=== PATIENT | male | born 1995 | race Caucasian/White ===

== ENCOUNTER 2018-06-09 09:34 | Emergency (ER) | payer OTHER ==
--- NOTE | 2018-06-09 11:10 | ED Physician Chart ---
ED Chief Complaint/HPI - Patient Information Date Seen:: 06/09/18 Time Seen:: 09:57 Chief Complaint:: LUE dog bites History of Present Illness:: LUE dog bites. unprovoked attack by a pit bull. Allergies:: Allergies Allergy/AdvReac Type Severity Reaction Status Date / Time No Known Allergies Allergy Verified 06/09/18 09:54 Vitals:: Vital Signs - 8 hr 06/09/18 09:57 Temp 98.8 F HR 81 RR 18 BP 145/88 O2 Sat % 98 Historian:: Patient Review:: Nurse's Note Reviewed ED Review of Systems - Review of Systems General/Constitutional: No fever, No chills, No weight loss, No weakness, No diaphoresis, No edema, No loss of appetite Skin: Other (dog biteS (unprovoked attack) by a pit bull) Head: No headache, No light-headedness Eyes: No loss of vision, No pain, No diplopia ENT: No earache, No nasal drainage, No sore throat, No tinnitus Neck: No neck pain, No swelling, No thyromegaly, No stiffness, No mass noted Cardio Vascular: No chest pain, No palpitations, No PND, No orthopnea, No edema Pulmonary: No SOB, No cough, No sputum, No wheezing GI: No nausea, No vomiting, No diarrhea, No pain, No melena, No hematochezia, No constipation, No hematemesis G/U: No dysuria, No frequency, No hematuria Musculoskeletal: No bone or joint pain, No back pain, No muscle pain Endocrine: No polyuria, No polydipsia Psychiatric: No prior psych history, No depression, No anxiety, No suicidal ideation Hematopoietic: No bruising, No lymphadenopathy Allergic/Immuno: No urticaria, No angioedema Neurological: No syncope, No focal symptoms, No weakness, No paresthesia, No headache, No seizure, No dizziness, No confusion, No vertigo ED Past Medical History - Past Medical History Obtainable: Yes Past Medical History: No significant medical hx Family Medical History - Family Member Mother Living Status: Still Living ED Physical Exam - Physical Examination General/Constitutional: Awake, Well-developed, well-nourished, Alert, No distress, GCS 15, Non-toxic appearing, Ambulatory Head: Atraumatic Other Skin comments:: see extremities for full description. Respiratory: Nl effort/Exclusion Extremities: No tenderness or effusion, Full ROM, normal strength in all extremities, No edema, Normal digits & nails Other Extremities comments:: small 0.5 cm puncture wound present on the volar aspect of the left hand in the mid to distal crease area with elevated area of epidermis. 0.5 cm scratch like appearing area on the distal forearm (dorsally). NV intact. Full flexion and extension all digits and wrist. No cellulitis. Full function, motor and sensation present. Neuro/Psych: Alert/oriented, Normal sensory exam, Normal motor strength, Judgement/insight normal, Mood normal, Normal gait, No focal deficits Misc: Normal back, No paraspinal tenderness ED Assessment - Assessment General Assessment: resting comfortably. ED Septic Shock - . Is Septic Shock (SBP<90, OR Lactate>4 mmol\L) present?: No - <6hrs of presentation: Vital Signs: Vital Signs - 8 hr 06/09/18 09:57 Temp 98.8 F HR 81 RR 18 BP 145/88 O2 Sat % 98 ED Reassessment (Disposition) - Reassessment Reassessment Condition:: Improved - Diagnosis Diagnosis:: LUE dog bites - Aftercare/Follow up Instructions Aftercare/Follow-Up Instructions:: Refer to Discharge Instructions Notes:: please clean wounds 2 times a day with betadine (and do not apply antibiotic ointment). please follow up with primary care physician for follow up exams. Medication Prescribed:: betadine, augmentin, norco - Patient Disposition Discharge/Transfer:: Home Condition at Disposition:: Stable, Improved
== END 2018-06-09 12:03 | disposition home or self-care (01) ==
LOC: ER 09:34
DX: S61.452A Open bite of left hand, initial encounter (principal); S61.432A Puncture wound without foreign body of left hand, initial encounter; W54.0XXA Bitten by dog, initial encounter; Y93.89 Activity, other specified; Y92.89 Other specified places as the place of occurrence of the external cause; Y99.8 Other external cause status
CPT/HCPCS: 99284; 96372 ×2; 90715; J1885; J0696; Z7502

== ENCOUNTER 2018-11-21 13:19 | Emergency (ER) | payer MEDICAID, OTHER ==
[2018-11-21] MEDS ORDERED: Dacriose Ophth Soln 120 mL Bottle EACH EYE ONE (13:50)
[2018-11-21] MEDS ORDERED: Fluorescein Sodium 1 mg Ophth Strip LEFT EYE ONE (13:50)
[2018-11-21] MEDS ORDERED: Tetracaine 0.5% Ophth Soln 15 mL Soln LEFT EYE ONE (13:50)
[2018-11-21] MEDS ORDERED: Dacriose Ophth Soln 120 mL Bottle ONE (13:54)
[2018-11-21] MEDS ORDERED: Fluorescein Sodium 1 mg Ophth Strip ONE (13:54)
[2018-11-21] MEDS ORDERED: TETRACAINE HCL 0.5% OPHTH SOLN 4ML BOTTLE ONE (13:55)
--- NOTE | 2018-11-21 15:25 | ED Physician Chart ---
ED Chief Complaint/HPI - Patient Information Date Seen:: 11/21/18 Time Seen:: 13:44 Chief Complaint:: L eye red, ST & congestion History of Present Illness:: PATIENT PRESENTS TO THE ER WITH HX OF REDDENED SCLERA TO LEFT EYE FOR TWO DAYS WITH SORE THROAT/CONGESTION; NO TRAUMA, NO OTHER REMARKABLE S/S; VISUAL ACUITY 20/20 OD, 20/20 OS yellow discharge from left eye Allergies:: Allergies Allergy/AdvReac Type Severity Reaction Status Date / Time No Known Allergies Allergy Verified 06/09/18 09:54 Vitals:: Vital Signs - 8 hr 11/21/18 11/21/18 13:44 15:00 Temp 98.8 F 98.8 F HR 74 74 RR 16 16 BP 151/89 157/89 O2 Sat % 100 100 Historian:: Patient Review:: Nurse's Note Reviewed ED Review of Systems - Review of Systems General/Constitutional: No fever, No chills, No weight loss, No weakness, No diaphoresis, No edema, No loss of appetite Skin: No skin lesions, No rash, No bruising Head: No headache, No light-headedness Eyes: No loss of vision, No diplopia, Other (L eye red) ENT: No earache, No nasal drainage, Sore throat, No tinnitus Neck: No neck pain, No swelling, No thyromegaly, No stiffness, No mass noted Cardio Vascular: No chest pain, No palpitations, No PND, No orthopnea, No edema Pulmonary: No SOB, No cough, No sputum, No wheezing GI: No nausea, No vomiting, No diarrhea, No pain, No melena, No hematochezia, No constipation, No hematemesis G/U: No dysuria, No frequency, No hematuria Musculoskeletal: No bone or joint pain, No back pain, No muscle pain Endocrine: No polyuria, No polydipsia Psychiatric: No prior psych history, No depression, No anxiety, No suicidal ideation Hematopoietic: No bruising, No lymphadenopathy Allergic/Immuno: No urticaria, No angioedema Neurological: No syncope, No focal symptoms, No weakness, No paresthesia, No headache, No seizure, No dizziness, No confusion, No vertigo ED Past Medical History - Past Medical History Obtainable: Yes Past Medical History: No significant medical hx Family Medical History - Family Member Mother History Unknown: Yes Living Status: Still Living ED Physical Exam - Physical Examination General/Constitutional: Awake, Well-developed, well-nourished, Alert, No distress, GCS 15, Non-toxic appearing, Ambulatory Head: Atraumatic Eyes: PERRL, EOMI Other Eyes comments:: left sclera injected. conjunctiva on left slightly injected. fluorescin exam negative on left. no foreign bodies present. Skin: Nl inspection, No rash, No skin lesions, No ecchymosis, Well hydrated, No lymphadenopathy ENMT: External ears, nose nl, Nasal exam nl, Lips, teeth, gums nl Neck: Nontender, Full ROM w/o pain, No JVD, No nuchal rigidity, No bruit, No mass, No stridor Respiratory: Nl effort/Exclusion, Clear to Auscultation, No Wheeze/Rhonchi/Rales Cardio Vascular: RRR, No murmur, gallop, rubs, NL S1 S2 GI: No tenderness/rebounding/guarding, No organomegaly, No hernia, Normal BS's, Nondistended, No mass/bruits, No McBurney tenderness : No CVA tenderness Extremities: No tenderness or effusion, Full ROM, normal strength in all extremities, No edema, Normal digits & nails Neuro/Psych: Alert/oriented, DTR's symmetric, Normal sensory exam, Normal motor strength, Judgement/insight normal, Mood normal, Normal gait, No focal deficits Misc: Normal back, No paraspinal tenderness ED Septic Shock - . Is Septic Shock (SBP<90, OR Lactate>4 mmol\L) present?: No - <6hrs of presentation: Vital Signs: Vital Signs - 8 hr 11/21/18 11/21/18 13:44 15:00 Temp 98.8 F 98.8 F HR 74 74 RR 16 16 BP 151/89 157/89 O2 Sat % 100 100 ED Reassessment (Disposition) - Reassessment Reassessment Condition:: Improved - Diagnosis Diagnosis:: Left eye bacterial conjunctivitis Non-strep pharyngitis Hypertension Cannabis use - Aftercare/Follow up Instructions Aftercare/Follow-Up Instructions:: Refer to Discharge Instructions Notes:: follow up with primary care physician (especially about hypertension) offered to write a work note for patient since he is contagious and was told how contagious conjunctivitis is to others, he refused. told to stop smoking. told to follow up with primary care physician if he continued to have a sore throat (since he is a smoker) after course of antibiotics for referral to an ENT specialist. Medication Prescribed:: Maxitrol eye drops: 1 to 2 drops left eye qid x 7 days Amoxicillin 500 mg po tid # 30 - Patient Disposition Discharge/Transfer:: Home Condition at Disposition:: Stable, Improved
== END 2018-11-21 15:22 | disposition home or self-care (01) ==
LOC: ER 13:19
DX: H10.9 Unspecified conjunctivitis (principal); J02.9 Acute pharyngitis, unspecified; I10 Essential (primary) hypertension; F12.90 Cannabis use, unspecified, uncomplicated
CPT/HCPCS: Z7502